=== PATIENT | male | born 1990 | race Caucasian/White ===

== ENCOUNTER → 2021-09-01 | Outpatient (CLI) | payer OTHER ==
[~2021-09-01] MED LIST: KEFLEX500 MG PO; NORCO 7.5-3251 EACH PO
== END ==
LOC: KOH-I 09:39
DX: S92.251D Displaced fracture of navicular [scaphoid] of right foot, subsequent encounter for fracture with routine healing (principal)
CPT/HCPCS: 73630

== ENCOUNTER → 2022-01-06 | Outpatient (CLI) | payer OTHER | LOC: KOH-I 13:15 | DX: M25.552 Pain in left hip (principal); M54.59 Other low back pain; M47.817 Spondylosis without myelopathy or radiculopathy, lumbosacral region | CPT/HCPCS: 72100; 73502 ==